=== PATIENT | male | born 1985 | race Caucasian/White ===

== ENCOUNTER 2016-11-26 14:47 | Inpatient (IN) | payer BC ==
--- NOTE | ~2016-11-26 | CN ---
Consultation Report [facility] [address] [place]. [address] NAME: SLICK BACK III : 85 STATUS : ADM IN PAT#: [id number] AGE: 31 ADM/REG DATE : 11/26/16 MR#: [id number] REPORT SERV DATE: 11/27/16 DICTATED BY: KEESHA JAMA DATE: 11/27/16 REPORT STATUS : Draft TRANSCRIBED BY: MODL DATE: 11/27/16 GI CONSULTATION DATE OF CONSULTATION: 11/27/2016 REASON FOR CONSULTATION: Evaluation and management of abdominal pain, history of Crohn's disease. HISTORY OF PRESENT ILLNESS: Mr. Back is a very pleasant 31-year-old male patient, who is known to Dr. Casey chapman in the outpatient setting, who presented to [facility] yesterday on 11/26 with a chief complaint of abdominal pain. The patient has a history of Crohn's disease, he tells me he was diagnosed roughly 12 years ago and has been on a regimen of Humira for the past seven years. He states his last exacerbation of Crohn's was two years ago, managed at [facility]. He has never had to have surgical resection. He was seen by Dr. Chapman in the office yesterday secondary to the above complaints of abdominal pain. He tells me that his symptom onset was Wednesday with crampy abdominal pain, he said which he did not think much of in the beginning because that is what he typically deals with, with his Crohn's disease. However, it progressively worsened. He was not passing any gas nor having any bowel movements. He denies any fever or chills. He denies nausea or vomiting. He was seen at [place] in the emergency room, who only obtained labs which showed an elevated white count at 14, but no abdominal imaging. He states that after he got home from [place], he did have one episode of vomiting up some brown liquid, but no blood. Concern was raised as he has a history of ileocolonic disease and a TI stricture that he could possibly have a small-bowel obstruction, so he was sent in for further evaluation. He had a contrasted CT scan of the abdomen and pelvis, which showed a high-grade small-bowel obstruction secondary to diffuse inflammatory changes at the ileocecal valve consistent with Crohn's disease. A transition zone was identified as well as reactive adenopathy. I have discussed this with the patient as well as Dr. Brandon. We will place him on steroids, continue his Humira, have Surgery to see him, and repeat serial imaging. PAST MEDICAL HISTORY: Positive for Crohn's disease, diagnosed 12 years ago, on a regimen of Humira. He has a history of a drain being placed to the colon many years ago, but no surgical intervention, i.e., colectomy or small-bowel resection. SOCIAL HISTORY: He is employed. Lives with his . Denies any tobacco. Social alcohol. No illicit drugs. FAMILY HISTORY: Positive for rheumatoid arthritis in his mother, who is also on a regimen of Humira. ALLERGIES: LISTED TO PERCOCET. HOME MEDICATIONS: Consist of Tylenol and Humira. Consultation Report [address] [place]. [address] NAME: SLICK BACK III : 85 STATUS : ADM IN [facility]#: [id number] AGE: 31 ADM/REG DATE : 11/26/16 MR#: [id number] REPORT SERV DATE: 11/27/16 DICTATED BY: KEESHA JAMA DATE: 11/27/16 REPORT STATUS : Draft TRANSCRIBED BY: OLYA DATE: 11/27/16 REVIEW OF SYSTEMS: A 10-point review of systems has been obtained with pertinent positives being addressed in the history of present illness. PERTINENT LABORATORY DATA: Sodium 142, potassium 3.9, BUN is 9, creatinine is 1.13. White count on admission 13, presently 10.5; hemoglobin 14.5; hematocrit is 43.1. PHYSICAL EXAMINATION: VITAL SIGNS: Temperature 98.5, pulse 65, respirations 16, blood pressure 124/75. NEURO: Reveals an alert male, sitting up in the bed with no focal deficits. GENERAL: He is cooperative, in no apparent distress. Awake, alert, and oriented x3. HEAD, EARS, EYES, NOSE, AND THROAT: Anicteric. Pupils equal, round, and reactive to light and accommodation. Normocephalic and atraumatic. NECK: No JVD. No palpable nodes. Supple. LUNGS: Clear anteriorly with normal respiratory effort exhibited. Equal expansion. CARDIOVASCULAR SYSTEM: Regular rate and rhythm. S1 and S2. No murmurs, rubs, gallops, S3, or S4 appreciated. ABDOMEN: Mildly distended. Extremely hypoactive. Tender to palpation mildly diffusely, but more so in the right side. No rebound or guarding elicited on exam. EXTREMITIES: No edema. Normal distal pulses. SKIN: Warm, dry, and intact. ASSESSMENT: 1. Crohn's exacerbation. 2. Small-bowel obstruction secondary to Crohn's exacerbation, located at the ileocecal valve. 3. Abdominal pain and cramping secondary to Crohn's exacerbation and small-bowel obstruction. 4. Leukocytosis, improved at present. PLAN: 1. We will initiate Solu-Medrol. 2. Continue his Humira. 3. Flat and upright abdominal films in the morning. 4. Consult Surgery to see for small-bowel obstruction. 5. Monitor data and clinical course. 6. We will also add Zofran for nausea. Plan of care has been discussed with Dr. Brandon as well as the patient and the patient's [id number], who is present at the bedside. CRISTY/OLYA Consultation Report [address] [place]. [address] NAME: SLICK BACK III : 85 STATUS : ADM IN [facility]#: [id number] AGE: 31 ADM/REG DATE : 11/26/16 MR#: [id number] REPORT SERV DATE: 11/27/16 DICTATED BY: KEESHA JAMA DATE: 11/27/16 REPORT STATUS : Draft TRANSCRIBED BY: OLYA DATE: 11/27/16 MASHA Lainze / [id number] CC: Prasanth Pruitt II, MD
--- NOTE | ~2016-11-26 | DS ---
Discharge Summary [facility] [id number] [place]. [address] NAME: SLICK SOSA III : 85 STATUS : DIS IN PAT#: [id number] AGE: 31 ADM/REG DATE : 11/26/16 MR#: [id number] REPORT SERV DATE: 12/01/16 DICTATED BY: DATE: REPORT STATUS : Draft TRANSCRIBED BY: MODL DATE: 11/30/16 ADMISSION DATE: 11/26/2016 DISCHARGE DATE: 11/30/2016 DISCHARGE DIAGNOSES: 1. High-grade small bowel obstruction, resolved. 2. Crohn disease, acute exacerbation. 3. Acute leukocytosis. 4. Nausea with vomiting, resolved. CONSULTATIONS: 1. Dr. Abdulaziz De Los Santos, Surgery, 11/30/2016. 2. MASHA Lainez, GI, 11/27/2016. PERTINENT TESTS AND PROCEDURES: 1. CT of abdomen and pelvis with contrast on 11/26/2016: Impression:. a. High-grade small-bowel obstruction secondary to what appears to be a diffuse inflammatory change at ileocecal valve, consistent with reactivation of the patient's known Crohn disease. b. Some free fluid present. c. Transition zone can be identified as the narrowed and inflamed terminal ilium is identified passing into the inflamed cecum. d. There is reactive adenopathy present as well. 2. Abdomen, AP and upright x-ray, 11/28/2016: Impression: Contrast passing into the colon demonstrates that the obstruction is not complete; however, partial obstruction is still suggested by the air fluid levels. Upright view demonstrates no evidence of free air in the peritoneal cavity. 3. KUB, 11/30/2016: Impression: Improving bowel gas pattern with mild amount of residual contrast through the distribution of the colon. No overtly distended gas-filled loops of small bowel at this time. CHIEF COMPLAINT UPON ADMISSION: Abdominal pain. HOSPITAL COURSE: Please refer to history and physical dated 11/26/[address] Prasanth Pruitt for complete details of the patient's initial presentation upon admission and health history. Please also refer to consultation dated 11/27/2016 provided by MASHA Lainez, GI, and consultation dated 11/30/2016, provided by Dr. Abdulaziz De Los Santos, Surgery. Briefly, the patient is a 31-year-old male with a history of Crohn disease, currently treated with Humira, who presented to [facility] as a direct admission from Dr. Chapman' office on 11/26/2016 due to complaints of fairly severe right lower quadrant abdominal pain. Initial diagnostic workup included CT of the abdomen and pelvis that reported high-grade small-bowel obstruction secondary to Crohn disease exacerbation. Discharge Summary [facility] [address] [place]. [address] NAME: SLICK SOSA III : 85 STATUS : DIS IN PAT#: [id number] AGE: 31 ADM/REG DATE : 11/26/16 MR#: [id number] REPORT SERV DATE: 12/01/16 DICTATED BY: DATE: REPORT STATUS : Draft TRANSCRIBED BY: MODL DATE: 11/30/16 GI and Surgery were consulted and they followed along throughout the admission. Surgical recommendations included continued conservative medical management as per the gastroenterology service to include steroids, IV fluids, and n.p.o. status. The patient responded well to conservative treatment and high-grade small bowel obstruction resolved without surgical intervention. 1. High-grade small bowel obstruction. This was secondary to exacerbation of Crohn disease. The patient responded well to conservative measures. The patient was discharged home with instructions to take MiraLAX 17 g p.o. daily and follow up with GI in one to two weeks and Surgery as needed. 2. Crohn disease, acute exacerbation. The patient is treated with Humira on an outpatient basis. The patient received Humira on 11/28/2016 during this hospitalization. The patient received methylprednisolone 20 mg IV every six hours and then was transitioned to prednisone 40 mg p.o. daily. The patient was discharged on tapering dose of prednisone. 3. Acute leukocytosis. Initially, this was believed to be related to inflammatory response. There were never any indications for antibiotic therapy. White blood cell count normalized without additional interventions; however, started trending upward with the initiation of steroids. The patient has remained afebrile with no signs or symptoms of infection. 4. Nausea and vomiting. This has since resolved with resolution of small-bowel obstruction. DISCHARGE CONDITION: At the time of discharge, the patient is hemodynamically stable. DISCHARGE DIET: Soft diet, to be advanced as tolerated. DISCHARGE MEDICATIONS: 1. Humira 40 mg subcu every 14 days to be administered on Saturdays, last dose 11/28/2016. 2. MiraLAX 17 g p.o. every a.m. 3. Prednisone 40 mg tablet p.o. daily, titrated to off per Gastroenterology. 4. Tylenol 325 mg tablet p.o. three times a day as needed. DISCHARGE INSTRUCTIONS: 1. Follow up with Dr. Chapman in one to two weeks. 2. Follow up with Dr. De Los Santos, surgeon, in two to four weeks as needed. The patient and his spouse were instructed on signs and symptoms that would warrant a return to the emergency department to include acute onset of fever 100.4 degrees or higher lasting more than one hour, acute onset of intractable abdominal pain, intractable nausea and vomiting, or any other health concerns that are deviations from his baseline status at the time of this discharge. Discharge Summary [address] [place]. [address] NAME: SLICK SOSA III : 85 STATUS : DIS IN [facility]#: [id number] AGE: 31 ADM/REG DATE : 11/26/16 MR#: [id number] REPORT SERV DATE: 12/01/16 DICTATED BY: DATE: REPORT STATUS : Draft TRANSCRIBED BY: OLYA DATE: 11/30/16 [facility]/OLYA HATTIE Rivera / [id number] CC: Prasanth Pruitt II, MD
--- NOTE | ~2016-11-26 | CN ---
Consultation Report [facility] [address] [place]. [address] NAME: SLICK BACK III : 85 STATUS : ADM IN PAT#: [id number] AGE: 31 ADM/REG DATE : 11/26/16 MR#: [id number] REPORT SERV DATE: 11/30/16 DICTATED BY: NERY HIGUERA DATE: 11/29/16 REPORT STATUS : Draft TRANSCRIBED BY: MODL DATE: 11/29/16 SURGICAL CONSULTATION CONSULTATION IS REQUESTED REGARDING PARTIAL SMALL BOWEL OBSTRUCTION WITH HISTORY OF CROHN DISEASE. DATE OF CONSULTATION: 11/27/2016 HISTORY OF PRESENT ILLNESS: Mr. Back is a very pleasant 31-year-old man with a history of Crohn disease that has been well controlled with Humira for the past 13 years. He is known to Dr. Casey Chapman who is his GI doctor. He presented to an outside facility on 11/25/2016 with a chief complaint of abdominal pain. However, since he had a previously scheduled outpatient followup with his GI doctor on 11/26/2016, he was discharged from that outside facility. He presented to his office with continued complaints of severe abdominal pain, nausea, vomiting, and poor appetite. Therefore, Dr. Chapman recommended him to [facility] for further evaluation and management. The patient denied fever. He had a mild leukocytosis of 10.5. CT scan was obtained that was consistent with a high-grade small bowel obstruction with diffuse inflammation at the ileocecal valve and terminal ileum with a transition zone at the terminal ileum that was consistent with reactivation of his known Crohn disease. Surgery was consulted for further evaluation and management of a partial small bowel obstruction. The GI service begun him on Solu-Medrol this morning. PAST MEDICAL HISTORY: Crohn disease that has been well controlled on Humira for a long time. He was diagnosed approximately 12-13 years ago. He does have a history of an abdominal drain placed in the colon, but he never underwent surgical resection. SOCIAL HISTORY: The patient is . Denies tobacco, alcohol, or illicits. FAMILY HISTORY: Positive for rheumatoid arthritis in his mother who also takes Humira. ALLERGIES: OXYCODONE. HOME MEDICATIONS: Include Tylenol and Humira. REVIEW OF SYSTEMS: An inventory of body systems was performed and found to be negative with the exception of those symptoms listed in the history of present illness. Specifically, he denied chest pain, shortness of breath, or dysuria. His last bowel movement and flatus was on 11/25/2016 prior to his admission to the hospital. PHYSICAL EXAMINATION: VITAL SIGNS: Temperature is 98.5, blood pressure is 127/66, heart rate 64, respirations 16, and oxygen saturation 99% on room air. GENERAL: A well-developed, well-nourished man who is lying down in bed. He is somewhat Consultation Report [address] [address] NAME: SLICK BACK III : 85 STATUS : ADM IN PAT#: [id number] AGE: 31 ADM/REG DATE : 11/26/16 MR#: [id number] REPORT SERV DATE: 11/30/16 DICTATED BY: NERY HIGUERA DATE: 11/29/16 REPORT STATUS : Draft TRANSCRIBED BY: OLYA DATE: 11/29/16 uncomfortable. HEENT: Normocephalic, atraumatic. Pupils equal, round, and reactive to light. Extraocular motions intact. Nasopharynx and oropharynx are clear. NECK: Supple. LUNGS: Clear to auscultation bilaterally. Equal breath sounds. HEART: Regular rate and rhythm. ABDOMEN: Mildly distended and is tender to palpation all over, but mostly distended in the right lower quadrant and on the right side. The abdomen is more firm here. EXTREMITIES: No deformities. NEUROLOGIC: No gross motor or sensory deficits are elicited on examination. LABORATORY DATA: All available laboratory data were reviewed in full. White blood cell count is 10.5, hematocrit is 43.1. Radiographic data were reviewed. ASSESSMENT AND PLAN: Mr. Back is a 31-year-old man with known Crohn disease and is likely a Crohn's flare. He also has a partial small bowel obstruction. At this time, we recommend continued medical management as per the Gastroenterology service including steroids and p.o. IV fluids. We would recommend a nasogastric tube if his nausea and vomiting continues. At this time, I think it is reasonable to continue with medical management and see if his partial small bowel obstruction resolves. However, he continues to be obstructed that he may need a surgical resection this hospitalization. The assessment and plan has been discussed with the attending physician, Dr. Cy Higuera who is in agreement at this time. DICTATED BY: MD LISA You/OLYA Elizabeth Higuera M.D. / [id number] CC: Prasanth Pruitt II, MD
--- NOTE | ~2016-11-26 | HP ---
History And Physical [place] [id number] [facility] [place]. [address] NAME: SLICK SOSA III : 85 STATUS : ADM IN [facility]#: [id number] AGE: 31 ADM/REG DATE : 11/26/16 MR#: [id number] REPORT SERV DATE: 11/26/16 DICTATED BY: IRLANDA DIAZPAVEL KRUGER DATE: 11/26/16 REPORT STATUS : Draft TRANSCRIBED BY: MODL DATE: 11/26/16 DATE OF ADMISSION: 11/26/2016 PRIMARY SENIOR HR MANAGER: Dr. Chapman. CHIEF COMPLAINT: Abdominal pain. HISTORY OF PRESENT ILLNESS: The patient is a 31-year-old male with history of Crohn's on Humira, who presented to [facility] as a direct admission from Dr. Chapman' office due to complaints of fairly severe right lower quadrant abdominal pain. The patient states his symptoms started yesterday morning and continued to progress over the course of the day to where he ended up going to [facility], where he was found to have mild leukocytosis of 12.4, was given IV fluids, morphine, and discharged as his appointment with Dr. Chapman was today. In Dr. Chapman' office, he had some significant abdominal pain and Dr. Chapman requested direct admission for further workup. Currently, the patient states his right lower quadrant pain is about 7/10. He has had a small bowel movement yesterday. He has also had poor appetite over the last 48 hours and not really eating anything. He also had an episode of emesis, which is unusual for him. When compared to his prior history of Crohn's flares, he says he does not usually have emesis and is uncertain if this feels like his usual Crohn flare. Dr. Chapman mentioned he is also concerned about possibility of bowel obstruction given he has terminal ileum disease without some stenosis there. Otherwise, the patient denies any chest pain, shortness of breath, hematochezia or melena. Denies any fevers or chills. REVIEW OF SYSTEMS: 10-point review of systems otherwise negative except for HPI. PAST MEDICAL HISTORY: Crohn disease, treated on Humira, last dose 10 days ago, but he has been on Humira for about seven years. PAST SURGICAL HISTORY: Drain placement for prior colon perforation many years ago, but no colectomy. SOCIAL HISTORY: The patient denies any tobacco use, but does have some infrequent social alcohol use. Denies any drug use. FAMILY HISTORY: Significant for rheumatoid arthritis in his mother, who is also on Humira. HOME MEDICATIONS: Humira. PHYSICAL EXAMINATION: VITAL SIGNS: Blood pressure 122/63, temperature 98.6, pulse 61, respirations 20. GENERAL: The patient is alert and oriented x3, in no acute distress. NECK: Supple. Nontender. No lymphadenopathy or thyromegaly. HEENT: Moist mucous membranes. Pupils equal, round, and reactive to light. Conjunctivae History And Physical [address] [address] NAME: SLICK SOSA III : 85 STATUS : ADM IN [facility]#: [id number] AGE: 31 ADM/REG DATE : 11/26/16 MR#: [id number] REPORT SERV DATE: 11/26/16 DICTATED BY: PAVEL FOURNIER II DATE: 11/26/16 REPORT STATUS : Draft TRANSCRIBED BY: OLYA DATE: 11/26/16 clear. RESPIRATORY: Lungs clear to auscultation bilaterally. No wheezes, rhonchi, or rales. CARDIOVASCULAR: Regular rate and rhythm. No murmurs, rubs, or gallops. ABDOMEN: Some fairly significant tenderness to palpation in the right lower quadrant with firmness more so than the left, guarding and some mild rebound tenderness. His bowel sounds are also fairly hypoactive, but no significant generalized distention. EXTREMITIES: No cyanosis, clubbing, or edema. SKIN: No lesions, rashes, or wounds. NEURO: No focal deficits. LABORATORY DATA: Pending. ASSESSMENT AND PLAN: The patient is a 31-year-old male with: 1. Severe right lower quadrant abdominal pain in the setting of history of Crohn's on Humira. Certainly, we need to rule out bowel obstruction or Crohn's flare, so we will go ahead and get an urgent CT scan with contrast of the abdomen and pelvis. Otherwise, we will treat with IV fluids and pain control until we get results. 2. Leukocytosis, holding antibiotics until further information. 3. Deep venous thrombosis prophylaxis with Lovenox. 4. The patient is full code. VADIM/OLYA Pavel Fournier II, MD / [id number] CC: Pavel Fournier II, MD
[2016-11-26 17:26] LABS: BASOPHILS 0.2 %; BASOPHILS ABSOLUTE 0.02 10/3/uL (0.0-0.16); EOSINOPHILS 0.4 %; EOSINOPHILS ABSOLUTE 0.05 10/3/uL (0.0-0.53); HEMATOCRIT 44.3 % (40.0-51.0); HEMOGLOBIN 15.1 g/dL (13.6-17.8); IMMATURE GRANULOCYTES 0.2 %; IMMATURE GRANULOCYTES ABSOLUTE 0.03 10/3/uL (0.0-0.11); LYMPHOCYTES ABSOLUTE 1.56 10/3/uL (0.67-4.30); MANUAL DIFF NO %; MEAN CORPUS HGB CONC 34.1 g/dL (32.0-36.0); MEAN CORPUSCULAR HEMOGLOB 30.4 pg (26.0-34.0); MEAN CORPUSCULAR VOLUME 89.1 fL (80-100); MEAN PLATELET VOLUME 11.4 fL (9.2-13.0); MONOCYTES 8.1 %; MONOCYTES ABSOLUTE 1.05 10/3/uL (0.21-1.20); NEUTROPHILS 79.1 %; NEUTROPHILS ABSOLUTE 10.32 10/3/uL (2.02-8.40); PLATELET COUNT 199 10/3/uL (150-400); RBC DISTRIBUTION WIDTH 13.1 % (12.0-16.0); RED CELL COUNT 4.97 10/6/uL (4.7-6.1)
[2016-11-26] MEDS ORDERED: HUMIRA PEN SC (17:29)
[2016-11-26] MEDS ORDERED: T PO (17:30)
[2016-11-26 17:37] LABS: BUN (BLOOD UREA NITROGEN) 9 MG/DL (6-23); CALCIUM, SERUM 8.5 MG/DL (8.5-10.4); CHLORIDE, SERUM 106 MMOL/L (96-112); CO2 (CARBON DIOXIDE) 29 MMOL/L (24-34); CREATININE 1.13 MG/DL (0.70-1.30); GFR AFRICAN AMERICAN 100 ML/MIN (>=60); GFR NON AFRICAN AMERICAN 86 ML/MIN (>=60); GLUCOSE, SERUM 81 MG/DL (60-99); POTASSIUM, SERUM 3.9 MMOL/L (3.5-5.3); SODIUM, SERUM 142 MMOL/L (135-148)
[2016-11-27 04:03] LABS: BASOPHILS 0.2 %; BASOPHILS ABSOLUTE 0.02 10/3/uL (0.0-0.16); EOSINOPHILS 0.8 %; EOSINOPHILS ABSOLUTE 0.08 10/3/uL (0.0-0.53); HEMATOCRIT 43.1 % (40.0-51.0); HEMOGLOBIN 14.5 g/dL (13.6-17.8); IMMATURE GRANULOCYTES 0.2 %; IMMATURE GRANULOCYTES ABSOLUTE 0.02 10/3/uL (0.0-0.11); LYMPHOCYTES 12.4 %; MEAN CORPUS HGB CONC 33.6 g/dL (32.0-36.0); MEAN CORPUSCULAR VOLUME 89.2 fL (80-100); MEAN PLATELET VOLUME 11.4 fL (9.2-13.0); MONOCYTES 9.7 %; MONOCYTES ABSOLUTE 1.02 10/3/uL (0.21-1.20); NEUTROPHILS 76.7 %; NEUTROPHILS ABSOLUTE 8.06 10/3/uL (2.02-8.40); PLATELET COUNT 199 10/3/uL (150-400); RBC DISTRIBUTION WIDTH 12.8 % (12.0-16.0); RED CELL COUNT 4.83 10/6/uL (4.7-6.1); WHITE BLOOD CELLS 10.5 10/3/uL (4.5-10.5)
[2016-11-27 04:07] LABS: MANUAL DIFF NO %
[2016-11-28 05:46] LABS: BASOPHILS 0 %; EOSINOPHILS 0 %; HEMOGLOBIN 13.8 g/dL (13.6-17.8); IMMATURE GRANULOCYTES 0.2 %; IMMATURE GRANULOCYTES ABSOLUTE 0.02 10/3/uL (0.0-0.11); LYMPHOCYTES 10.5 %; LYMPHOCYTES ABSOLUTE 0.98 10/3/uL (0.67-4.30); MEAN CORPUS HGB CONC 33.7 g/dL (32.0-36.0); MEAN CORPUSCULAR HEMOGLOB 29.6 pg (26.0-34.0); MEAN PLATELET VOLUME 11.7 fL (9.2-13.0); MONOCYTES 3.1 %; MONOCYTES ABSOLUTE 0.29 10/3/uL (0.21-1.20); NEUTROPHILS 86.2 %; NEUTROPHILS ABSOLUTE 8.08 10/3/uL (2.02-8.40); PLATELET COUNT 203 10/3/uL (150-400); RBC DISTRIBUTION WIDTH 12.5 % (12.0-16.0); RED CELL COUNT 4.66 10/6/uL (4.7-6.1); WHITE BLOOD CELLS 9.4 10/3/uL (4.5-10.5)
[2016-11-28 05:48] LABS: MANUAL DIFF NO %
[2016-11-28 06:01] LABS: ALBUMIN 2.9 G/DL (3.5-5.0); ALKALINE PHOSPHATASE 74 U/L (45-117); BUN (BLOOD UREA NITROGEN) 12 MG/DL (6-23); CALCIUM, SERUM 8.3 MG/DL (8.5-10.4); CHLORIDE, SERUM 107 MMOL/L (96-112); CREATININE 0.92 MG/DL (0.70-1.30); DIRECT BILIRUBIN 0.2 MG/DL (0.0-0.4); GFR AFRICAN AMERICAN 128 ML/MIN (>=60); GFR NON AFRICAN AMERICAN 110 ML/MIN (>=60); INDIRECT BILIRUBIN(NOT ORDER) 0.5 MG/DL (0.1-0.9); POTASSIUM, SERUM 4.2 MMOL/L (3.5-5.3); SGOT(AST) 10 U/L (5-40); SGPT(ALT) 24 U/L (5-65); SODIUM, SERUM 143 MMOL/L (135-148); TOTAL BILIRUBIN 0.7 MG/DL (0-1.2); TOTAL PROTEIN 7.1 G/DL (6.0-8.5)
[2016-11-28 06:04] LABS: CO2 (CARBON DIOXIDE) 24 MMOL/L (24-34); GLUCOSE, SERUM 111 MG/DL (60-99)
[2016-11-29 07:10] LABS: BASOPHILS 0 %; EOSINOPHILS 0 %; HEMATOCRIT 41.4 % (40.0-51.0); HEMOGLOBIN 14.1 g/dL (13.6-17.8); IMMATURE GRANULOCYTES 0.3 %; IMMATURE GRANULOCYTES ABSOLUTE 0.04 10/3/uL (0.0-0.11); LYMPHOCYTES 8.6 %; LYMPHOCYTES ABSOLUTE 1.13 10/3/uL (0.67-4.30); MEAN CORPUS HGB CONC 34.1 g/dL (32.0-36.0); MEAN CORPUSCULAR HEMOGLOB 29.7 pg (26.0-34.0); MEAN CORPUSCULAR VOLUME 87.2 fL (80-100); MEAN PLATELET VOLUME 11.8 fL (9.2-13.0); MONOCYTES 5.3 %; MONOCYTES ABSOLUTE 0.69 10/3/uL (0.21-1.20); NEUTROPHILS 85.8 %; NEUTROPHILS ABSOLUTE 11.24 10/3/uL (2.02-8.40); PLATELET COUNT 221 10/3/uL (150-400); RBC DISTRIBUTION WIDTH 12.7 % (12.0-16.0); RED CELL COUNT 4.75 10/6/uL (4.7-6.1); WHITE BLOOD CELLS 13.1 10/3/uL (4.5-10.5)
[2016-11-29 07:11] LABS: MANUAL DIFF NO %
[2016-11-29 07:18] LABS: CALCIUM, SERUM 8.6 MG/DL (8.5-10.4); CHLORIDE, SERUM 105 MMOL/L (96-112); CO2 (CARBON DIOXIDE) 28 MMOL/L (24-34); GFR AFRICAN AMERICAN 131 ML/MIN (>=60); GFR NON AFRICAN AMERICAN 113 ML/MIN (>=60); GLUCOSE, SERUM 112 MG/DL (60-99); POTASSIUM, SERUM 3.9 MMOL/L (3.5-5.3); SODIUM, SERUM 141 MMOL/L (135-148)
[2016-11-29 07:19] LABS: BUN (BLOOD UREA NITROGEN) 16 MG/DL (6-23)
[2016-11-30 06:18] LABS: BASOPHILS 0.1 %; BASOPHILS ABSOLUTE 0.01 10/3/uL (0.0-0.16); EOSINOPHILS 0 %; HEMATOCRIT 40.8 % (40.0-51.0); HEMOGLOBIN 13.9 g/dL (13.6-17.8); IMMATURE GRANULOCYTES 0.4 %; IMMATURE GRANULOCYTES ABSOLUTE 0.06 10/3/uL (0.0-0.11); LYMPHOCYTES ABSOLUTE 1.39 10/3/uL (0.67-4.30); MEAN CORPUS HGB CONC 34.1 g/dL (32.0-36.0); MEAN CORPUSCULAR HEMOGLOB 29.8 pg (26.0-34.0); MEAN CORPUSCULAR VOLUME 87.4 fL (80-100); MEAN PLATELET VOLUME 11.9 fL (9.2-13.0); MONOCYTES 5.8 %; NEUTROPHILS 84.7 %; NEUTROPHILS ABSOLUTE 13.13 10/3/uL (2.02-8.40); PLATELET COUNT 225 10/3/uL (150-400); RBC DISTRIBUTION WIDTH 12.9 % (12.0-16.0); RED CELL COUNT 4.67 10/6/uL (4.7-6.1); WHITE BLOOD CELLS 15.5 10/3/uL (4.5-10.5)
[2016-11-30 06:22] LABS: MANUAL DIFF NO %
[2016-11-30 06:28] LABS: BUN (BLOOD UREA NITROGEN) 15 MG/DL (6-23); CALCIUM, SERUM 8.4 MG/DL (8.5-10.4); CHLORIDE, SERUM 107 MMOL/L (96-112); CO2 (CARBON DIOXIDE) 27 MMOL/L (24-34); CREATININE 0.85 MG/DL (0.70-1.30); GFR AFRICAN AMERICAN 135 ML/MIN (>=60); GFR NON AFRICAN AMERICAN 116 ML/MIN (>=60); GLUCOSE, SERUM 122 MG/DL (60-99); POTASSIUM, SERUM 3.9 MMOL/L (3.5-5.3); SODIUM, SERUM 142 MMOL/L (135-148)
[2016-11-30] MEDS ORDERED: MIRALAX POWDER1 PKT PO (16:27)
[2016-11-30] MEDS ORDERED: STERAPRED DS10 MG (16:27)
== END 2016-11-30 17:07 | disposition home or self-care (01) | DRG 386 ==
LOC: 4EA 14:47
PROVIDERS: Internal Medicine; Internal Medicine Gastroenterology; Nurse Practitioner Family
DX: K50.012 Crohn's disease of small intestine with intestinal obstruction (principal); D72.829 Elevated white blood cell count, unspecified
CPT/HCPCS: 74000; 74020; 74177; 80048; 80076; 83605; 85025; A9270-GY; J1170; J2405; J2550; J2920; Q9967